=== PATIENT | female | born 1980 | race Caucasian/White ===

== ENCOUNTER 2018-10-01 02:32 | Observation (INO) ==
[2018-10-01] MEDS ORDERED: Isovue-370 500 ML BOTTLE IVP ONE (02:46)
[2018-10-01] MEDS ORDERED: Piperacillin/Tazobactam 3.375 GM in 0.9 % Sodium Chloride Mini Bag 100 ML IVPB ONE (02:59)
[2018-10-01 03:22] LABS: Basophils % 0.1 %; Eosinophils # 0.3 K/mcL (0.0-0.6); Eosinophils % 4.6 %; Hemoglobin 12.7 g/dL (11.5-15.4); Immature Granulocytes % 0.1 % (0-4); Lymphocytes % 43.1 %; Mean Corpuscular HGB Conc 34.3 g/dL (31.6-35.5); Mean Corpuscular Hemoglobin 32.9 pg (28.0-33.3); Mean Corpuscular Volume 95.9 fL (83.0-100.0); Monocytes # 0.4 K/mcL (0.0-1.3); Neutrophils # 3.2 K/mcL (1.6-8.9); Platelet Count 261 K/mcL (140-400); Red Blood Count 3.86 M/mcL (3.82-4.97); Red Cell Distribution Width 12.5 % (11.5-14.5); Segmented Neutrophils % 46.1 %
--- NOTE | 2018-10-01 03:29 | Emergency Department Note ---
Disposition Clinical Impression: Flexor tenosynovitis of finger, Hypokalemia Disposition: Admitted As Inpatient Condition: Fair Referrals: Francoise Hernandez CNP [Primary Care Provider] - Forms: ED Satisfaction Letter Time of Disposition: 06:20 General Adult HPI - General Chief complaint: ED Skin/Abscess/Foreign Body Stated complaint: cellulitis Time Seen by Provider: 10/01/18 02:35 Source: patient Limitations: no limitations Nursing Notes Reviewed: Yes Vital Signs Reviewed: Yes - History of Present Illness Pain Scale: 7 - Related Data Home Medications Medication Instructions Recorded Confirmed Depakote 12/11/16 Lasix 12/11/16 Previous Rx's Medication Instructions Recorded Ibuprofen [Motrin] 600 mg PO Q6HR PRN #20 tab 12/11/16 Allergies Allergy/AdvReac Type Severity Reaction Status Date / Time No Known Allergies Allergy Verified 10/01/18 02:37 Past Medical History - Past Medical History Medical history: Reports: seizures Psychiatric history: Reports: anxiety, bipolar, depression - Social History Smoking Status: Current every day smoker Smokeless Tobacco Status: No Alcohol use: Reports: none Drug use: Reports: IV Drug Use Physical Exam - General Limitations: no limitations General appearance: alert, in no apparent distress Course Vital Signs Temperature 98.3 F 10/01/18 02:33 Pulse Rate 112 10/01/18 02:33 Respiratory Rate 20 10/01/18 02:33 Blood Pressure 151/100 10/01/18 02:33 O2 Sat by Pulse Oximetry 100 10/01/18 02:33 Temperature 98.3 F 10/01/18 02:33 Pulse Rate 91 10/01/18 04:28 Respiratory Rate 16 10/01/18 04:28 Blood Pressure 137/99 10/01/18 04:28 O2 Sat by Pulse Oximetry 100 10/01/18 04:28 Oxygen Delivery Oxygen Delivery Room Air Medical Decision Making - Lab Data Lab results reviewed: Yes I reviewed the patient's lab results. Result diagrams: 10/01/18 03:08 10/01/18 03:08 Lab Results 10/01/18 10/01/18 10/01/18 Range/Units 03:08 03:08 03:08 WBC 6.9 (4.3-11.1) K/mcL RBC 3.86 (3.82-4.97) M/mcL Hgb 12.7 (11.5-15.4) g/dL Hct 37.0 (35.3-44.9) % MCV 95.9 (83.0-100.0) fL MCH 32.9 (28.0-33.3) pg MCHC 34.3 (31.6-35.5) g/dL RDW 12.5 (11.5-14.5) % Plt Count 261 (140-400) K/mcL MPV 10.0 (9.4-12.4) fL Immature Gran % 0.1 (0-4) % Seg Neutrophils % 46.1 % Lymphocytes % 43.1 % Monocytes % 6.0 % Eosinophils % 4.6 % Basophils % 0.1 % Neutrophils # 3.2 (1.6-8.9) K/mcL Lymphocytes # 3.0 (0.6-4.6) K/mcL Monocytes # 0.4 (0.0-1.3) K/mcL Eosinophils # 0.3 (0.0-0.6) K/mcL Basophils # 0.0 (0.0-0.2) K/mcL ESR 17 H (0-15) mm/hr Sodium 141 (136-145) mEq/L Potassium 2.9 L (3.5-5.1) mEq/L Chloride 106 (98-107) mEq/L Carbon Dioxide 28 (23-29) mEq/L BUN 6 (6-20) mg/dL Creatinine 0.58 L (0.60-1.20) mg/dL Est GFR ( Amer) > 60 (> 60) Est GFR (Non-Af Amer) > 60 (> 60) BUN/Creatinine Ratio 10 (6-26) Glucose 112 H (70-105) mg/dL Calculated Osmolality 290 (280-300) Calcium 9.2 (8.6-10.3) mg/dL - Radiology Data Radiology results reviewed: Yes I reviewed the patient's radiology results. Hand CT 10/01/18 02:46 IMPRESSION: Tenosynovitis of the flexor tendon of the 2nd digit with underlying tendinosis. Associated soft tissue swelling of the 2nd digit. No acute fracture or dislocation. Normal alignment. D/ / Zhang Olea MD / Zhang Olea MD Interpreting Provider: Zhang Olea MD Attestation Statement - Attestation Attestation: I, Joe Schwarz MD, personally evaluated this patient and discussed their management with the resident physician. I reviewed the resident's note and agree with the documented findings, medical decision making, and plan of care. 37-year-old female presents to the emergency department with a complaint of infection in her left index finger. Patient states that she fell on Friday and injured her left hand and thinks that she got something in the finger over the DIP flexor crease area. She states that she has been digging at it and using her clippers to try and get something out. She has got a lot of green drainage. She denies fever. She was seen approximately 30 hours ago at another facility and states they wanted her to come here to be admitted so she can see a hand surgeon. They did give her a dose of antibiotic IV. She is unsure what the antibiotic was but states it was not a drip and they just persisted and IV. She left there AMA and they did not prescribe her any antibiotics. She presents here tonight complaining that the finger is more swollen and painful. She denies any fever. She states that yesterday the entire forearm was swollen which is better today but the finger itself is worse. On examination patient is a well-developed well-nourished well-appearing female in no acute distress. She is alert and oriented 3. There is no cyanosis or diaphoresis. Breath sounds are clear and equal bilaterally. Heart is regular with a mild tachycardia. Abdomen is soft and nontender with normal bowel sounds. Patient appears to have tenosynovitis of the left index finger with diffuse fusiform swelling of the left index finger and holds the finger in slight flexion. She is unable to extend the finger. Limited range of motion secondary to swelling and pain. No obvious drainage at this time. No palpable fluctuance but it is markedly tender to palpation. Capillary refill normal distally. Sensation intact distally. Labs reviewed. Blood culture and wound culture obtained. CT of the hand shows flexor tenosynovitis of the left index finger. Patient started on IV vancomycin and Zosyn. Dr. Crane discussed the case with the orthopedist bridge/structure inspection team leader, Dr. Novoa, and he recommends admission to the hospitalist service with IV antibiotics and he will consult on the patient this morning. The hospitalist, Dr. Khan, was consulted and accepted admission of the patient.
--- NOTE | 2018-10-01 03:34 | Emergency Department Note ---
Disposition Clinical Impression: Flexor tenosynovitis of finger, Hypokalemia Disposition: Admitted As Inpatient Condition: Fair Referrals: Francoise Hernandez CNP [Primary Care Provider] - Forms: ED Satisfaction Letter Time of Disposition: 06:20 General Adult HPI - General Chief complaint: ED Skin/Abscess/Foreign Body Stated complaint: cellulitis Time Seen by Provider: 10/01/18 02:35 Source: patient Limitations: no limitations Nursing Notes Reviewed: Yes Vital Signs Reviewed: Yes - History of Present Illness HPI Narrative: 37-year-old female presents to the emergency department with left index finger. Patient states on Friday she was walking and fell onto the ground she said at that time she believes she punctured her hand she Trying to Pull Something Out Of It Was Unable to. The area that she said she punctured was just proximal to her PIP joint. She was seen at [facility] in the emergency department where she received 1 dose of antibiotics via IV present sure what it was and she was set to be transferred here for further evaluation for orthopedic consultation. She then left AMA and they did not give her any antibiotics. She then returned here today to get seen she said the pain continued to get worse. She said the swelling was going all the way to her arm prior to Friday without swelling and redness has since gone down towards mainly only located in the index finger. She says it does hurt whenever she moves it. She has felt generalized weakness but has had no fevers. Patient otherwise has no other complaints at this time Pain Scale: 7 - Related Data Home Medications Medication Instructions Recorded Confirmed Depakote 12/11/16 Lasix 12/11/16 Previous Rx's Medication Instructions Recorded Ibuprofen [Motrin] 600 mg PO Q6HR PRN #20 tab 12/11/16 Allergies Allergy/AdvReac Type Severity Reaction Status Date / Time No Known Allergies Allergy Verified 10/01/18 02:37 All systems ED: reviewed and negative except as stated. Review of Systems: As Per HPI Past Medical History - Past Medical History Attestation: Yes The following information was validated with the patient. Source: patient Medical history: Reports: seizures Psychiatric history: Reports: anxiety, bipolar, depression - Social History Smoking Status: Current every day smoker Smokeless Tobacco Status: No Alcohol use: Reports: none Drug use: Reports: IV Drug Use Physical Exam - General Limitations: no limitations General appearance: alert, in no apparent distress - Head Head exam: atraumatic, normocephalic, normal inspection - Eye Eye exam: Present: normal appearance, PERRL, EOMI - ENT ENT exam: normal exam, normal oropharynx, mucous membranes moist - Neck Neck exam: Present: normal inspection, full ROM, trachea midline - Chest Chest inspection: Present: normal inspection, symmetric chest wall rise - Respiratory Respiratory exam: Present: normal lung sounds bilaterally - Cardiovascular Cardiovascular exam: Present: regular rate, normal rhythm, normal heart sounds - Abdominal Exam Abdominal exam: Present: soft, Non-Tender. Absent: tenderness, distention, guarding, rebound, rigidity - Expanded Upper Extremity Exam Shoulder exam: Present: normal inspection, full ROM Arm exam: Present: normal inspection, full ROM Elbow exam: Present: normal inspection, full ROM Forearm/Wrist exam: Present: normal inspection, full ROM Hand exam: Present: tenderness, swelling, erythema, other (Index finger of the left hand is held in slight flexion does have fusiform swelling all around the digit there is pain on passive extension and pain all along the finger. The s welling and erythema is only located to that finger. There is an open wound just proximal to the PIP joint. There is no active drainage at this time.). Absent: deformity Vascular exam: Normal: capillary refill, radial pulse - Neurological Exam Neurological exam: Present: alert, oriented X3 - Skin Skin exam: Present: warm, dry, intact, normal color Course Course Narrative: Patient does meet all of can they will signs for flexor tenosynovitis. We will get blood cultures CBC ESR BMP. We will also get CT with contrast of the left hand. Patient is a right-handed female. Due to the worry about flexor tenosynovitis we will treat patient with antibiotics including Zosyn and vancomycin. Pending results will consult with orthopedic surgery for further recommendations. Patient most likely will be admitted for IV antibiotics and further evaluation. - Consultations Consultation #1: Spoke with on-call orthopedic surgery Dr. Upton who agrees with the diagnosis says that he will see the patient in consultation and to admit to the hospital service. He agrees with our antibiotic choice. Time: 05:45 Vital Signs Temperature 98.3 F 10/01/18 02:33 Pulse Rate 112 10/01/18 02:33 Respiratory Rate 20 10/01/18 02:33 Blood Pressure 151/100 10/01/18 02:33 O2 Sat by Pulse Oximetry 100 10/01/18 02:33 Temperature 98.3 F 10/01/18 02:33 Pulse Rate 91 10/01/18 04:28 Respiratory Rate 16 10/01/18 04:28 Blood Pressure 137/99 10/01/18 04:28 O2 Sat by Pulse Oximetry 100 10/01/18 04:28 Oxygen Delivery Oxygen Delivery Room Air Medical Decision Making - MDM Narrative Medical decision making narrative: 37-year-old female presented to the emergency department with left finger pain. She is right-handed. There was worry about flexor tenosynovitis as patient did have all [address] K[place]avals signs. We did get CT with contrast which again showed fl exor tenosynovitis. Patient had blood cultures as well as a wound culture drawn from the area. Patient was mildly hypokalemic I did replace her potassium with oral. Patient was given vancomycin and Zosyn to treat her flexor tenosynovitis. I spoke with on-call orthopedic surgery who agrees with our plan they will see patient in consultation with the hospitalist service. Spoke with the hospitalist Dr. Oro who agreed to admit the patient to their service. Patient admitted in stable condition. Hand CT 10/01/18 02:46 IMPRESSION: Tenosynovitis of the flexor tendon of the 2nd digit with underlying tendinosis. Associated soft tissue swelling of the 2nd digit. No acute fracture or dislocation. Normal alignment. D/ / Zhang Olea MD / Zhang Olea MD Interpreting Provider: Zhang Olea MD - Medical Records Medical records reviewed: Yes I reviewed the patient's medical records. - Lab Data Lab results reviewed: Yes I reviewed the patient's lab results. Result diagrams: 10/01/18 03:08 10/01/18 03:08 Lab Results 10/01/18 10/01/18 10/01/18 Range/Units 03:08 03:08 03:08 WBC 6.9 (4.3-11.1) K/mcL RBC 3.86 (3.82-4.97) M/mcL Hgb 12.7 (11.5-15.4) g/dL Hct 37.0 (35.3-44.9) % MCV 95.9 (83.0-100.0) fL MCH 32.9 (28.0-33.3) pg MCHC 34.3 (31.6-35.5) g/dL RDW 12.5 (11.5-14.5) % Plt Count 261 (140-400) K/mcL MPV 10.0 (9.4-12.4) fL Immature Gran % 0.1 (0-4) % Seg Neutrophils % 46.1 % Lymphocytes % 43.1 % Monocytes % 6.0 % Eosinophils % 4.6 % Basophils % 0.1 % Neutrophils # 3.2 (1.6-8.9) K/mcL Lymphocytes # 3.0 (0.6-4.6) K/mcL Monocytes # 0.4 (0.0-1.3) K/mcL Eosinophils # 0.3 (0.0-0.6) K/mcL Basophils # 0.0 (0.0-0.2) K/mcL ESR 17 H (0-15) mm/hr Sodium 141 (136-145) mEq/L Potassium 2.9 L (3.5-5.1) mEq/L Chloride 106 (98-107) mEq/L Carbon Dioxide 28 (23-29) mEq/L BUN 6 (6-20) mg/dL Creatinine 0.58 L (0.60-1.20) mg/dL Est GFR ( Amer) > 60 (> 60) Est GFR (Non-Af Amer) > 60 (> 60) BUN/Creatinine Ratio 10 (6-26) Glucose 112 H (70-105) mg/dL Calculated Osmolality 290 (280-300) Calcium 9.2 (8.6-10.3) mg/dL - Radiology Data Radiology results reviewed: Yes I reviewed the patient's radiology results.
[2018-10-01 03:40] LABS: BUN/Creatinine Ratio 10 (6-26); Blood Urea Nitrogen 6 mg/dL (6-20); Calcium 9.2 mg/dL (8.6-10.3); Carbon Dioxide 28 mEq/L (23-29); Chloride 106 mEq/L (98-107); Glucose 112 mg/dL (70-105); Osmolality,Calculated 290 (280-300); Potassium 2.9 mEq/L (3.5-5.1); Sodium 141 mEq/L (136-145); eGFR For Non-African Americans > 60 (> 60)
[2018-10-01] MEDS ORDERED: Naloxone 0.4 MG/ML INJ IVP PRN (07:39)
[2018-10-01] MEDS ORDERED: OXYCODONE Oral CONC 10 MG/0.5 ML ORAL.SYG SL PRN ×2 (07:39→10:07)
[2018-10-01] MEDS ORDERED: Ondansetron 4 MG/2 ML VIAL IVP PRN (07:39)
[2018-10-01] MEDS ORDERED: Ketorolac 30 MG/ML VIAL IVP PRN (07:39)
[2018-10-01] MEDS ORDERED: Ringers Solution, Lactated 1,000 ML IVC SCH (07:45)
[2018-10-01] MEDS ORDERED: Valproic Acid INJ 1,000 MG in 0.9 % Sodium Chloride 100 ML IVPB ONE (08:35)
[2018-10-01] MEDS ORDERED: Nicotine 21 MG PATCH.TD24 TD PRN (08:39)
--- NOTE | 2018-10-01 08:42 | Internal Med History&Physical ---
Date of Encounter: 10/01/18 Time of Encounter: 08:20 Internal Medicine - H&P: HPI Chief complaint: Finger pain Admitted From: Emergency Dept Plans for Post Hospital Care: Home History of present illness: Ms. Moura is a 37 year old female presented to ED with complaints of L index finger pain and swelling. She was evaluated and subsequently admitted. Ms Moura stated that approx 3 days ago she fell and scraped her arms and legs. She noted she had a "splinter-like" piece in her L index finger on the palmar surface. She tried to get it out on her own and ultimately had some drainage from the area. Nothing made it better. The pain increased and she was feeling feverish so yesterday she went to [facility] ED. They opened an area on her finger and gave her IV abx. They wanted to transfer her for ortho but she left on her own (no abx given PO). Last night she presented to ED here with increased swelling, pain and drainage. She was diagnosed with flexor tenosynovitis and admitted. At this time her complaints are pain in finger and pruritus of her legs (psoriasis and poison yulissa). She has hx of seizure disorder with last seizure 2 months ago. She has not been on medication (is supposed to take Depakote) for "a while." She normally follows with Dr. Sainz but has not seen in over a year. She also has a hx of HTN and has been on Clonidine and Lasix in the past. She also has not taken these recently and has not seen her PCP either. She as a remote hx of prescription drug use followed by heroin. She is tapering off Suboxone and has not taken in 2-3 days. We discussed pain meds for her finger especially in light of possible surgery. She understands the risks as does her S.O. in the room. She also has been off her psychiatric meds. Past Med Surg Social Fam HX - Past Medical History Source: patient Medical history: hypertension, seizures Additional medical history: Hepatitis C. 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 Psychiatric history: anxiety, bipolar, depression - Past Surgical History Surgical History: no surgical history - Social History Smoking Status: Current every day smoker Packs per day: 1 pack per day Smokeless Tobacco Status: No Alcohol use: none Drug use: IV Drug Use - Family History Mother Living Status: Still Living Hx Family Cardiac Disorders: Yes Hx Family Psychosocial Disorders: Yes Internal Medicine - H&P: Meds Doxycycline Hyclate [Morgidox] 100 mg PO BID #14 capsule 10/01/18 [Rx] Ibuprofen [Motrin] 400 mg PO Q6HR #20 tablet 10/01/18 [Rx] Allergy/AdvReac Type Severity Reaction Status Date / Time No Known Allergies Allergy Verified 10/01/18 02:37 All Systems PM: A 10-system review of systems was performed and is negative for pertinent findings except as documented above in the HPI. - Constitutional Constitutional: chills, fatigue, malaise - EENT Eyes: no discharge, no loss of vision Ears: no decreased hearing Nose, mouth and throat: no dry mouth, no mouth pain - Cardiovascular Cardiovascular ROS IM: edema (chronic), no chest pain, no dyspnea, no dyspnea on exertion, no palpitations - Respiratory Respiratory: no cough, no dyspnea, no hemoptysis, no dyspnea on exertion, no wheezing, no chest congestion - Gastrointestinal Gastrointestinal: no abdominal pain, no cramping, no heartburn - Genitourinary Genitourinary: abnormal menses, no difficulty urinating - Musculoskeletal Musculoskeletal ROS IM: joint swelling Additional comments: Pain and swelling in L index finger. - Integumentary Integumentary IM: erythema, pruritus, rash Additional comments: Psoriasis - Neurological Neurological ROS: convulsions, memory loss - Psychiatric Psychiatric: anxiety - Endocrine Endocrine IM: no excessive sweating - Hematologic/Lymphatic Hematologic/Lymphatic: no easy bleeding - Allergic/Immunologic Allergic/Immunologic: no itchy eyes - Constitutional Vitals: Temp Pulse Resp BP Pulse Ox 97.9 F 91 17 111/65 99 10/01/18 07:50 10/01/18 07:50 10/01/18 07:50 10/01/18 07:50 10/01/18 07:50 General appearance: Present: A&O X 3, pleasant, answers questions appropriately Exam: See below - Head Head exam: Present: normocephalic - Eye Eye exam: Present: EOMI, conjuntiva pink - ENT ENT exam: Present: mucous membranes moist - Neck Neck exam general surgery: Present: normal inspection, supple. Absent: thyromegaly - Respiratory Respiratory exam: Present: CTAB. Absent: rales, rhonchi, wheezes - Cardiovascular Cardiovascular exam: Present: RRR. Absent: irregular rhythm, systolic murmur - GI/Abdominal GI/Abdominal exam: Present: normal bowel sounds, soft. Absent: tenderness - Extremities Exam Extremities exam: Present: warm. Absent: tenderness Additional comments: L index finger swollen with some erythema. Tender to movement especially extension of finger. No drainage noted. - Neurological Exam Neurological exam: Present: alert, oriented X3, no focal deficits - Skin Skin exam: Present: abrasion, dry, rash Additional comments: Psoriasis patches on legs. Internal Med - H&P Results - Labs CBC & Chem 7: 10/01/18 03:08 10/01/18 11:30 Labs: Short CBC 10/01/18 Range/Units 03:08 WBC 6.9 (4.3-11.1) K/mcL Hgb 12.7 (11.5-15.4) g/dL Hct 37.0 (35.3-44.9) % Plt Count 261 (140-400) K/mcL Neutrophils # 3.2 (1.6-8.9) K/mcL BMP 10/01/18 03:08 Sodium 141 Potassium 2.9 L Chloride 106 Carbon Dioxide 28 BUN 6 Creatinine 0.58 L Glucose 112 H Calcium 9.2 - Impressions ITS Impressions Hand CT 10/01/18 02:46 IMPRESSION: Tenosynovitis of the flexor tendon of the 2nd digit with underlying tendinosis. Associated soft tissue swelling of the 2nd digit. No acute fracture or dislocation. Normal alignment. D/ / 10/01/2018 07:43:34 Zhang Olea MD / [email or web address] Interpreting Provider: Zhang Olea MD - Assessment and Plan (1) Suppurative tenosynovitis of flexor tendon of left hand Status: Acute Assessment and plan: Pt presents with pain and swelling with drainage of L index flexor tendon. Received IV abx yesterday. Admit to med surg. Pain control IV Zosyn and Vancomycin NPO at this time Orthopedic consult for further evaluation (2) Hypokalemia Status: Acute Assessment and plan: Potassium low in ED and given oral supplement Recheck K and Mag at 1000 (3) HTN (hypertension) Status: Chronic Assessment and plan: Pt states she has hx of HTN but is off meds at this time. Currently controlled. Monitor for now. Qualifiers: Hypertension type: essential hypertension Qualified Code(s): I10 - Essential (primary) hypertension (4) Seizure disorder, grand mal Status: Acute Assessment and plan: Pt stated she has hx of generalized seizure but has not been on her meds recently (Depakote). Seizure precautions. Will give dose of IV Depakote today (possible OR later). (5) Bipolar 1 disorder Status: Chronic Assessment and plan: Monitor. Has been off her meds. (6) History of heroin abuse Status: Chronic Assessment and plan: Has been tapering off Suboxone Cautious use of opiates at this time. (7) Tobacco abuse Status: Chronic Assessment and plan: Cessation counselling. Nicotine patch if needed - Time Spent With Patient Total time spent is greater than 50% in coordination of care (as documented) at patient's floor/unit and/or counseling patient:
--- NOTE | 2018-10-01 11:19 | Orthopedic Consult Note ---
Date of Encounter: 10/01/18 Time of Encounter: 11:13 Assessment and Plan (1) Suppurative tenosynovitis of flexor tendon of left hand Current Visit: Yes Status: Acute The patient is a very mild flexor tenosynovitis of the left index finger. From what she describes she may have already decompressed it. She has a normal white count. Surgical intervention not required of this moment. I recommend elevation of the left extremity and continue the IV vancomycin and Zosyn. Repeat labs tomorrow morning. I will keep her nothing by mouth after midnight a nd reassess in the morning. History of Present Illness Chief complaint: Left index finger pain and swelling HPI: Ms. Moura is a 37 year old right hand dominant female who fell on her outstretched hand on Friday, sustaining a puncture wound to the index finger. The patient states that her finger became swollen the next couple days and the pain increased. She was seen at the [facility] ER on Friday where she received IV antibiotics. The patient was supposed be transferred to [place] for further management, the patient left AMA without a prescription for antibiotics. The patient states when she went home she used a nail clipper to pull out a splinter-type object and express pus out from the wound. The finger continued to swell. She presented to the [place] ER last night. Cultures were obtained from the wound. The patient was started on IV vancomycin and Zosyn, and admitted for further management. The patient reports moderate pain, with extreme pain with motion of the finger. Past medical history significant for seizures, she has been off medications for 1 year. Last seizure was 2 months ago. Past Med Surg Social Fam HX - Past Medical History Medical history: hypertension, seizures Additional medical history: Hepatitis C. 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 Psychiatric history: anxiety, bipolar, depression - Past Surgical History Surgical History: other (D&C) - Social History Smoking Status: Current every day smoker Packs per day: 1 pack per day Smokeless Tobacco Status: No Alcohol use: none Drug use: IV Drug Use - Family History Mother Living Status: Still Living Hx Family Cardiac Disorders: Yes Hx Family Psychosocial Disorders: Yes Medications and Allergies No Known Home Drugs 10/01/18 [History] Allergy/AdvReac Type Severity Reaction Status Date / Time No Known Allergies Allergy Verified 10/01/18 02:37 All Systems Reviewed: The remainder of the systems were reviewed and are negative Physical Exam - Constitutional Vitals: Temp Pulse Resp BP Pulse Ox 97.9 F 91 17 111/65 99 10/01/18 07:50 10/01/18 07:50 10/01/18 07:50 10/01/18 07:50 10/01/18 07:50 General appearance IM: mild distress, A&O X 3, thin, answers questions appropriately Exam: Left upper extremity: The patient has mild fusiform swelling of the index finger. There is minimal erythema, no streaking up the hand or forearm. She is holding the digit in a flexed position. She has limited active range of motion secondary to pain, mild pain experience with passive stretch. She does have mild tenderness along the flexor tendon sheath. There is a small puncture wound midline at the DIP flexion crease. I was able to express a droplet of blood out. There is no swelling of the border digits with good motion. She does have good capillary refill. The tip of the index finger feels somewhat numb. She has good motion of the wrist and elbow. No medial epitrochlear nodes palpated. Results - Labs Result Diagrams: 10/01/18 03:08 10/01/18 11:30 Labs: Abnormal lab results ESR 17 mm/hr (0-15) H 10/01/18 03:08 Potassium 2.9 mEq/L (3.5-5.1) L 10/01/18 03:08 0.58 mg/dL (0.60-1.20) L 10/01/18 03:08 Glucose 112 mg/dL (70-105) H 10/01/18 03:08 H & H 10/01/18 Range/Units 03:08 Hgb 12.7 (11.5-15.4) g/dL Hct 37.0 (35.3-44.9) % All other labs normal. - Diagnostic results Wrist/Hand CT: report reviewed (IMPRESSION: Flexor tenosynovitis of 2nd digit, soft tissue swelling), image reviewed Consult Discharge Plan - Plan Referrals: Francoise Hernandez, BRANDON [Primary Care Provider] -
[2018-10-01] MEDS ORDERED: Piperacillin/Tazobactam 3.375 GM in 0.9 % Sodium Chloride Mini Bag 100 ML IVPB SCH (12:00)
[2018-10-01 12:18] LABS: BUN/Creatinine Ratio 11 (6-26); Blood Urea Nitrogen 6 mg/dL (6-20); Calcium 9.1 mg/dL (8.6-10.3); Carbon Dioxide 27 mEq/L (23-29); Chloride 107 mEq/L (98-107); Glucose 78 mg/dL (70-105); Magnesium 2.2 mg/dL (1.6-2.6); Osmolality,Calculated 290 (280-300); Potassium 4.1 mEq/L (3.5-5.1); Sodium 142 mEq/L (136-145); eGFR For Non-African Americans > 60 (> 60)
[2018-10-01 16:08] VITALS: BP 127/85
--- NOTE | 2018-10-01 17:15 | Discharge Summary ---
- NOTES TO OUTPATIENT PROVIDER Notes to Outpatient Provider: Pt admitted for tenosynovitis and left AMA. Orders not resulted at time of discharge: Pending orders 10/01/18 03:45 Culture,Wound [RM] Stat 10/01/18 05:58 Culture,Blood [BC] Stat 10/02/18 04:00 Basic Metabolic Panel AM 0400 CRP [C-Reactive Protein] AM 0400 Complete Blood Count w/o Diff [HEME] AM 0400 ESR [Erythrocyte Sedimentation Rate] [HEME] AM 0400 Magnesium AM 0400 Date of Encounter: 10/01/18 Time of Encounter: 17:00 (Pt left AMA without being seen by me at discharge) - Discharge Diagnosis (1) Hypokalemia Priority: Secondary Status: Acute (2) Suppurative tenosynovitis of flexor tendon of left hand Priority: Primary Status: Acute (3) HTN (hypertension) Priority: Secondary Status: Chronic Qualifiers: Hypertension type: essential hypertension Qualified Code(s): I10 - Essential (primary) hypertension (4) Seizure disorder, grand mal Priority: Secondary Status: Acute (5) Bipolar 1 disorder Priority: Secondary Status: Chronic (6) Tobacco abuse Priority: Secondary Status: Chronic (7) IV drug abuse Priority: Secondary Status: Acute Hospital course: Ms. Moura is a 37 year old female admitted for acute L index finger tenosynovitis. Ms Moura was admitted for IV abx. She was evaluated by orthopedics. She stated she had not use IV drugs since 2014 but is apparently actively using. She left AMA despite knowing risks to her hand. Abx and Motrin sent to pharmacy but put on hold until patient presents to get them. - Time Spent with Patient Total time spent providing and/or coordinating discharge services: - Discharge Medications Prescriptions: New Doxycycline Hyclate [Morgidox] 100 mg PO BID #14 capsule Ibuprofen [Motrin] 400 mg PO Q6HR #20 tablet Home Medications: Doxycycline Hyclate [Morgidox] 100 mg PO BID #14 capsule 10/01/18 [Rx] Ibuprofen [Motrin] 400 mg PO Q6HR #20 tablet 10/01/18 [Rx] Allergies/Adverse Reactions: Allergy/AdvReac Type Severity Reaction Status Date / Time No Known Allergies Allergy Verified 10/01/18 02:37 Date of admission: 10/01/18 06:26 Primary care physician: Francoise Hernandez Consults: 10/01/18 06:18 Consult to Orthopedic Surgery [CONS] Stat Consulting Provider: [facility] Reason for Consult: Flexor Tenosynovitis of L Index Finger Time Notified: 05:45 Call Completed: Yes 10/01/18 10:41 Consult to Storage Management Consultant [CONS] Routine Reason for SW Consult: SOCIAL CONCERNS Discharging clinician: Karlos Graham Anticipated date of discharge: 10/01/18 - Constitutional Vitals: Temp Pulse Resp BP Pulse Ox 97.7 F 81 17 127/85 100 10/01/18 16:07 10/01/18 16:07 10/01/18 16:07 10/01/18 16:07 10/01/18 16:07 General appearance: Present: A&O X 3, pleasant, answers questions appropriately Exam: No exam done at discharge - left AMA - Patient Status Disposition: Left Against Medical Advice Condition: Fair Functional capacity at discharge: independent ambulation Overall status at discharge: patient is not back to baseline - Discharge Instructions Follow Up With: Francoise Hernandez, [employer]OR [Primary Care Provider] -
[2018-10-01] MEDS ORDERED: Aminoglycoside Consult 1 EACH MC ONE (17:29)
--- NOTE | 2018-10-01 17:43 | Anesthesia Evaluation PreOp ---
Date of Encounter: 10/02/18 Time of Encounter: 17:40 - Past History Planned Operation: Left Index Finger I & D Cardiac History: Denies any Significant Hx (Medical history: hypertension, seizures Additional medical history: Hepatitis C. 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 Psychiatric history: anxiety, bipolar, depression), HTN Pulmonary History: Smoker, Pack/yr (1 ppd) [employer] History: Seizures, Other (Anxiety, Bipolar, Depression) Other Medical History: Hepatic (Hep C) Anesthesia History: Past Anesthesia (none) Alcohol Use: none Drug use: IV Drug Use Medications and Allergies Doxycycline Hyclate [Morgidox] 100 mg PO BID #14 capsule 10/01/18 [Rx] Ibuprofen [Motrin] 400 mg PO Q6HR #20 tablet 10/01/18 [Rx] Allergy/AdvReac Type Severity Reaction Status Date / Time No Known Allergies Allergy Verified 10/01/18 02:37 Anesthesia Results - Labs 10/01/18 03:08 10/01/18 11:30 - Imaging EKG: report reviewed (Sinus rhythm) Anesthesia Exam Vital Signs/O2 Sat, Most Current Temp Pulse Resp BP Pulse Ox 97.7 F 81 17 127/85 100 10/01/18 16:07 10/01/18 16:07 10/01/18 16:07 10/01/18 16:07 10/01/18 16:07
[2018-10-01] MEDS ORDERED: *HR* Heparin 5,000 UNIT/ML VIAL SQ SCH (18:00)
== END 2018-10-01 17:30 | disposition left against medical advice (07) ==
LOC: 3BNU 02:32 → EMEROOARM 02:32 → SUATTDRO 06:26 → 3BNU 06:55
PROVIDERS: ADMIT Internal Medicine; ATTEND Internal Medicine